=== PATIENT | female | born 1955 | race Caucasian/White ===

== ENCOUNTER 2023-08-16 11:07 | Emergency (ER) | payer MEDICARE, OTHER ==
[~2023-08-16] VITALS: Ht 172.7 cm; Wt 71.3 kg
[~2023-08-16 11:07] MED LIST: CETIRIZINE HCL10 MG PO
[2023-08-16 11:36] LABS: BASOPHILS 0.4 % (0-2); EOSINOPHILS 0.8 % (0-6); HEMATOCRIT 43.1 % (35.0-50.0); HEMOGLOBIN 14.2 g/dL (12.0-18.0); LYMPHOCYTES 19.5 % (24-44); MCH 29.6 (27-36); MCV 89.8 fl (81-99); MONOCYTES 5.2 % (0-12); NEUTROPHILS 74.1 % (39-80); PLATELET COUNT 317 K/uL (140-440); RDW 13.6 (10.5-15.0)
[2023-08-16 11:57] LABS: ALBUMIN 3.9 g/dL (3.4-5.0); ALBUMIN/GLOBULIN RATIO 1.08 (1.1-2.4); ANION GAP 19.6 (7-21); BILIRUBIN, TOTAL 0.6 ng/dL (0.2-1.0); BUN/CREATININE RATIO 19.69 (6.0-28.6); CALCIUM 10.2 mg/dL (8.5-10.1); CREATININE, SERUM 1.32 mg/dL (0.55-1.02); MAGNESIUM 2.1 mg/dL (1.8-2.4); POTASSIUM 4.6 mmol/L (3.5-5.1); PROTEIN, TOTAL 7.5 g/dL (6.4-8.2)
[2023-08-16 13:17] VITALS: BP 125/67
--- NOTE | 2023-08-17 15:01 | EKG ---
[facility] [address] [place] [address] Signed Normal sinus rhythm Normal ECG When compared with ECG of 16-AUG-2023 11:15, (Unconfirmed) Sinus rhythm has replaced Atrial flutter Vent. rate has decreased BY 65 BPM Right bundle branch block is no longer present Confirmed by RUBY MONTGOMERY MD ([id number]) on 08/17/2023 3:01:41 PM Electronically Signed By: RUBY MONTGOMERY 08/17/23 1501 PATIENT NAME: ELEUTERIO KAT Electrocardiogram DATE OF : 57 PHYSICIAN: RUBY MONTGOMERY REPORT #: [id number] REPORT IS CONFIDENTIAL AND NOT TO BE RELEASED WITHOUT AUTHORIZATION
--- NOTE | 2023-08-17 15:01 | EKG ---
[facility] [address] [facility] [place], [place] [address] Signed Atrial flutter with variable AV block Right bundle branch block Abnormal ECG No previous ECGs available Confirmed by RUBY MONTGOMERY MD ([id number] on 08/17/2023 3:01:18 PM Electronically Signed By: RUBY MONTGOMERY 08/17/23 1501 PATIENT NAME: ELEUTERIO KAT Electrocardiogram DATE OF : 57 PHYSICIAN: RUBY MONTGOMERY REPORT #: [id number] REPORT IS CONFIDENTIAL AND NOT TO BE RELEASED WITHOUT AUTHORIZATION
== END 2023-08-16 13:17 | disposition home or self-care (01) ==
LOC: ED 11:07
PROVIDERS: Emergency Medicine
DX: I48.92 Unspecified atrial flutter (principal); Z88.8 Allergy status to other drugs, medicaments and biological substances; Z79.899 Other long term (current) drug therapy
CPT/HCPCS: 36415; 71045; 80053; 83735; 84484; 85025; 93005; 93010; 96374; 99285-25; J0153; J2704